=== PATIENT | male | born 1945 | race Caucasian/White ===

== ENCOUNTER 2021-06-25 05:38 | Day surgery (SDC) | payer MEDICARE, SELFPAY ==
--- NOTE | 2021-06-22 12:57 | EKG12_ITS ---
Test Reason : PREOP Blood Pressure : / mmHG Vent. Rate : 090 BPM Atrial Rate : 090 BPM P-R Int : 122 ms QRS Dur : 128 ms QT Int : 378 ms P-R-T Axes : 063 259 047 degrees QTc Int : 462 ms Sinus rhythm with marked sinus arrhythmia Right bundle branch block Abnormal ECG Confirmed by LESLYE GIBBS, RENITA ([id number]), editor city [place] ([id number]) on 06/23/2021 11:45:35 AM Referred By: Walt Byrnes Confirmed By:RENITA GAVIN MD
--- NOTE | 2021-06-22 13:05 | RAD_ITS ---
INDICATION: PREOP EXAMINATION/TECHNIQUE: X-RAY - XR Chest 2 Views COMPARISON: None. FINDINGS: LUNGS: Mildly hyperinflated. Minimal reticular opacities in the left lung base likely scarring. No consolidation. No consolidation. No pneumothorax. MEDIASTINUM: Unremarkable. CARDIAC SILHOUETTE: Not enlarged. BONES AND SOFT TISSUES: Degenerative changes in the dorsal spine. Densities presumed surgical anchors at the right humeral head. IMPRESSION: Minimal left basilar scarring. No evidence of active intrathoracic disease. Electronically Signed: Amara Simmons MD at 5:53 EDT , RAD/Chest PA and Lateral
[2021-06-22 14:01] LABS: Hemoglobin 15.1 g/dL (13.0-16.5); Mean Corp Hgb Conc 33.6 g/dL (32-36); Mean Corpuscular Hgb 30.4 pg (27.0-32.0); Mean Corpuscular Volume 90.5 fL (80-94); Mean Platelet Vol. 10.1 fl (6.2-12.0); Platelet Count 252 K/mm3 (150-450); RBC Distribution Width SD 39.5 fl (35.1-43.9); Red Blood Count 4.97 M/mm3 (4.6-6.2); White Blood Count 6.9 K/mm3 (4.4-11.0)
[2021-06-22 14:26] LABS: Anion Gap 5 (5-15); BUN 10 mg/dL (7-18); BUN/Creat Ratio 7.9 RATIO (10-20); Calcium,Total 8.7 mg/dL (8.5-10.1); Chloride 107 mmol/L (98-107); Creatinine, Serum 1.27 mg/dL (0.70-1.30); EST Glomerular Filtration Rate 59 mL/min (>60); Est Glom Filt Rate - Afr Amer 71 mL/min (>60); Glucose 124 mg/dL (74-106); Potassium 3.5 mmol/L (3.5-5.1); Sodium Level 139 mmol/L (136-145)
[2021-06-25 06:33] VITALS: BP 146/82; PULSE 68; RESP 17; TEMP 36.3; O2SAT 96; BMI 26.4
[2021-06-25] MEDS: Lactated Ringers 1,000 ML 15 ML IV (06:40)
[2021-06-25] MEDS: Cefazolin 2 GM in 0.9% Normal Saline 100 ML IV (07:30)
[2021-06-25] MEDS: Lidocaine 1% (50 ml mdv) 50 ML Vial (08:33)
[2021-06-25] MEDS: Bupivacaine Mpf 0.5% 30 ML VIAL (08:33)
[2021-06-25 08:50] VITALS: BP 116/73; BP 146/82; PULSE 64; RESP 16; TEMP 36.2; O2SAT 95
[2021-06-25 09:00] VITALS: BP 106/70; BP 146/82; PULSE 60; RESP 16; O2SAT 94
--- NOTE | 2021-06-25 09:00 | OP.PCM_ITS ---
Report of Operation Date of Procedure: 06/25/21 Description of Surgical Findings:: Preoperative diagnosis: 1. Left recurrent carpal tunnel syndrome 2. Left cubital tunnel syndrome Postoperative diagnosis: 1. Left recurrent carpal tunnel syndrome 2. Left cubital tunnel syndrome Procedure: 1. Left revision carpal tunnel release 2. Left cubital tunnel decompression Surgeon: Walt Byrnes DO Fixture Repairer Fabricator: None Anesthesia: General LMA Anesthesiologist: Dr. Palomares Complications: None Drains: None Estimated blood loss: 5 cc Urinary output: None measured IV fluids: Per anesthesia record Specimens: None Surgical implants: None Surgical indications: This is a 75-year-old male seen in the outpatient setting diagnosed with recurrent left carpal tunnel syndrome and left cubital tunnel syndrome. This was confirmed on EMG. The patient failed nonoperative management in the form of anti-inflammatory medications, activity modification. Operative intervention in form of cubital tunnel release was offered to the left elbow, as well as revision carpal tunnel release left wrist. There was no evidence of ulnar nerve instability on examination the office. We discussed potential anterior nerve transposition. The risks, benefits, alternatives to procedure were reviewed with patient at length in the outpatient setting and he agreed to proceed. Risks included but were not limited to bleeding, infection, loss of life or limb, risk of anesthesia, persistent paresthesias, neurovascular injury, persistent pain, need for additional surgery, stiffness, loss of hand function. Patient expressed understanding wish to proceed with surgery. Informed consent obtained in the office. Description of procedure: Patient was seen in preoperative holding area. Patient was identified by name, medical record number, date of . The operative extremity was marked with a surgical marker. We confirmed informed consent with the patient and all questions were answered to the patient's satisfaction. At time of his procedure, patient was brought to the operative suite and positioned supine a standard operating table. All bony prominences were well- padded. General anesthesia was induced and endotracheal tube placed. The operative upper extremity was then prepped for surgery by first applying a well- padded pneumatic tourniquet to the left upper arm. The hand table attached to the left side of the table. We spun the bed 90 degrees. The left upper extremity was then prepped and draped in normal, sterile orthopedic fashion. 2 g Ancef was administered prior to incision by anesthesia staff. We performed a timeout at this point confirming side, site, and operation to be performed. No c oncerns voiced and elected to proceed. I first exsanguinated the left upper extremity with a Esmarch bandage. Tourniquet was inflated 250 mmHg were made up for 30 minutes. Esmarch was removed. I planned a standard approach to the carpal tunnel utilizing his previous scar with a Pia extension proximally into the antebrachial fascia. Full-thickness skin flaps were developed with a 15 blade scalpel. Antebrachial fascia was encountered and opened proximally. Palmar fascia and scar was encountered overlying the carpal tunnel. I split the fascia in line with the median nerve identifying the contents of the carpal tunnel. There was significant hypertrophic tenosynovium noted within the carpal tunnel which was excised. The median nerve was then examined. There were no aberrancies noted. The recurrent branch was identified and appeared appropriately decompressed. I then copiously irrigated the wound with normal saline. Wound was reapproximated with interrupted horizontal mattress 4-0 nylon suture. I then turned my attention to the elbow. A standard curvilinear incision overlying cubital tunnel approximately 10 cm in length was marked and sharply incised with a 15 blade scalpel. I bluntly dissected through the subcutaneous tissue. Medial antebrachial cutaneous nerve was identified and protected throughout the case. Superficial crossing vessels were cauterized with bipolar cautery. I then bluntly dissected down to the level of the cubital tunnel and Mascorro's ligament. The nerve was identified. Mascorro's ligament was released on the dorsal aspect to prevent subluxation. I then decompressed the nerve distally dissecting it free from the flexor carpi ulnaris superficial and deep fascia. The first motor branch to the FCU was identified and protected. After adequate release I turned my us dissection proximally. The medial intermuscular septum was identified and released off the medial epicondyle, excising a 5 cm x 1 cm strip. I bluntly dissected to the level of the posterior compartment and triceps. The arcade of [place] was encountered and released. I then digitally palpated the nerve in the posterior compartment appeared free as it passed into the cubital tunnel region. I then took the elbow through range of motion and the ulnar nerve was stable in the groove. No evidence of instability was noted. I then deflated the tourniquet. Hemostasis was obtained with bipolar cautery. A field block was administered with 10 cc mixture 1% lidocaine plain with 0.5% plain Marcaine, 50: 50 mixture. Dermis was reapproximated buried 3-0 Vicryl s uture and skin was closed with running 4-0 Monocryl subcuticular suture and Dermabond. Sterile compression dressing was then applied. Patient tolerated procedure well without apparent complication. Patient was transferred to PACU in stable condition. Intraoperative medications: Post Operative Plan: Weightbearing: Nonweightbearing operative extremity Antibiotics: Ancef 2 g x 1 dose preoperatively DVT Prophylaxis: None indicated Jarquin: None Dressing: Maintain splint, keep it clean dry and intact until follow-up X-Rays: None Pain Medication: Putnam Rx upon discharge Follow-up: 2 weeks post-operatively with me in the office
--- NOTE | 2021-06-25 09:00 | PCM.DC ---
Discharge Instructions Follow Up Care Test Results: Test results from this visit will be discussed in further detail at your follow-up appointment, if applicable. Discharge Plan Admission Attending Provider: Walt Byrnes Primary Care Provider: Dillon Badillo Instructions Additional Instructions / Restrictions: Follow preprinted instructions from your surgeons office. Discharge Orders/Prescriptions Prescriptions: New hydrocodone-acetaminophen 5-325 mg tablet 1 tab PO Q6H PRN (Reason: pain) 5 Days Qty: 20 RF: 0 Continued melatonin 3 mg Tablet 3 mg PO QHS PRN (Reason: Sleep) RF: 0 aspirin 81 mg Tablet,Delayed Release (Dr/Ec) 81 mg PO DAILY RF: 0 levothyroxine 100 mcg Tablet 100 mcg PO DAILY RF: 0 Dairy Relief 9,000 unit Tablet 9,000 unit PO DAILY RF: 0 lansoprazole 30 mg Capsule,Delayed Release(Dr/Ec) 30 mg PO QODAY RF: 0 lansoprazole 15 mg Capsule,Delayed Release(Dr/Ec) 15 mg PO QODAY RF: 0 calcium carbonate-vitamin D3 600 mg-10 mcg (400 unit) Capsule 1 cap PO SUMOWEFR RF: 0 naproxen sodium [Aleve] 220 mg Capsule 220 mg PO BID PRN (Reason: Pain) RF: 0 krill oil 500 mg Capsule 500 mg PO DAILY RF: 0 Centrum Silver Men 300-600-300 mcg Tablet 1 tab PO DAILY RF: 0 PreserVision AREDS-2 250-90-40-1 mg Capsule 1 tab PO BID RF: 0 Other Ambulatory Orders: 12 Lead EKG (Routine) Timeframe: [id number] Location: None Selected Ordered By: Dr. Walt Byrnes Referrals / Follow Up: Dillon Badillo MD [Primary Care Provider] - Walt Byrnes DO [STAFF PHYSICIAN] - 07/10/21 Disposition Disposition (needs filled in before D/C Order can be placed): Home, Self Care
[2021-06-25 09:15] VITALS: BP 122/76; BP 146/82; PULSE 71; RESP 16; O2SAT 96
[2021-06-25 09:26] VITALS: BP 127/86; BP 146/82; PULSE 65; RESP 16; TEMP 36.2; O2SAT 98
[2021-06-25 10:05] VITALS: BP 144/87; BP 146/82; PULSE 60; RESP 16; TEMP 36.3; O2SAT 95
== END 2021-06-25 23:59 | disposition home or self-care (01) ==
LOC: SDC 05:40 → AC 05:40
PROVIDERS: PCP Family Medicine; Referring Provider Student in an Organized Health Care Education/Training Program; Visit Provider Student in an Organized Health Care Education/Training Program
PROC: (CPT 64721; principal; 2021-06-25 07:15)
DX: G56.02 Carpal tunnel syndrome, left upper limb (principal); G56.22 Lesion of ulnar nerve, left upper limb; E07.9 Disorder of thyroid, unspecified; Z79.82 Long term (current) use of aspirin; Z79.890 Hormone replacement therapy; R03.0 Elevated blood-pressure reading, without diagnosis of hypertension; K21.9 Gastro-esophageal reflux disease without esophagitis; M19.90 Unspecified osteoarthritis, unspecified site; Z79.899 Other long term (current) drug therapy; K76.0 Fatty (change of) liver, not elsewhere classified; I45.10 Unspecified right bundle-branch block; N42.9 Disorder of prostate, unspecified
CPT/HCPCS: 64721; 64718; 36415; 71046; 80048; 85027; 93005; J7120; J2405